=== PATIENT | male | born 1950 | race African-American/Black ===

== ENCOUNTER 2016-10-05 11:14 | Emergency (ER) | payer MEDICARE, MEDICAID ==
[~2016-10-05] VITALS: Ht 177.8 cm; Wt 60.0 kg
[2016-10-05 12:14] VITALS: BP 170/86
[2016-10-05] MEDS ORDERED: LIDOCAINE HCL 1%/EPI 1:200,000 30 ML VIAL MC ONE (13:15)
== END 2016-10-05 17:00 | disposition home or self-care (01) ==
LOC: ER 14:35
DX: L02.413 Cutaneous abscess of right upper limb (principal); F11.288 Opioid dependence with other opioid-induced disorder; I10 Essential (primary) hypertension; F17.210 Nicotine dependence, cigarettes, uncomplicated
CPT/HCPCS: 10060; 99283; J7030

== ENCOUNTER 2016-10-07 13:14 | Emergency (ER) | payer MEDICARE, MEDICAID ==
[~2016-10-07] VITALS: Ht 167.6 cm; Wt 55.0 kg
[2016-10-07 14:17] VITALS: BP 154/91
== END 2016-10-07 15:50 | disposition home or self-care (01) ==
LOC: ER 13:14
DX: Z48.00 Encounter for change or removal of nonsurgical wound dressing (principal); L02.413 Cutaneous abscess of right upper limb; F11.10 Opioid abuse, uncomplicated; I10 Essential (primary) hypertension
CPT/HCPCS: 99283

== ENCOUNTER 2016-11-17 21:28 | Emergency (ER) | payer MEDICARE, MEDICAID ==
[~2016-11-17] VITALS: Ht 167.6 cm; Wt 63.5 kg
[2016-11-17 21:29] VITALS: BP 174/96
== END 2016-11-18 03:41 | disposition left against medical advice (07) ==
LOC: ER 22:25
DX: Z53.21 Procedure and treatment not carried out due to patient leaving prior to being seen by health care provider (principal)

== ENCOUNTER 2018-03-16 12:26 | Emergency (ER) | payer MEDICARE, MEDICAID ==
[~2018-03-16] VITALS: Ht 170.2 cm; Wt 52.0 kg
[2018-03-16] MEDS ORDERED: LIDOCAINE 1%/EPI 1:100,000 10 ML VIAL IJ ONE (13:30)
[2018-03-16] MEDS ORDERED: BACITRACIN ZINC OINT UDPKT TOP ONE (13:30)
[2018-03-16 14:34] VITALS: BP 141/90
== END 2018-03-16 14:35 | disposition home or self-care (01) ==
LOC: ER 14:04
DX: L02.414 Cutaneous abscess of left upper limb (principal); I10 Essential (primary) hypertension; F17.200 Nicotine dependence, unspecified, uncomplicated; Z86.73 Personal history of transient ischemic attack (TIA), and cerebral infarction without residual deficits
CPT/HCPCS: 10060; 99283; J3490

== ENCOUNTER 2018-07-04 00:07 | Emergency (ER) | payer MEDICARE, MEDICAID ==
[~2018-07-04] VITALS: Ht 188 cm; Wt 82.0 kg
[2018-07-04] MEDS ORDERED: DEXTROSE 50% WATER 50ML SYRINGE IV ONE (01:00)
[2018-07-04 01:39] LABS: BASOPHILS % 1.1 % (0.0-2.0); HEMATOCRIT. 41.7 % (42.0-52.0); HEMOGLOBIN. 13.8 g/dL (14.0-18.0); LYMPHOCYTES % 17.2 % (20.0-50.0); MEAN CORPUSCULAR HEMOGLOBIN 30.2 pg (28.0-32.0); MEAN CORPUSCULAR VOLUME 90.8 fL (80.0-94.0); MEAN PLATELET VOLUME 7.3 fl (7.4-10.4); MONOCYTES % 5.1 % (2.0-8.0); NEUTROPHILS % 74.6 % (40.0-76.0); PLATELET 323 x1000/uL (130-400); RED BLOOD CELL COUNT 4.59 mill/uL (4.7-6.1); RED CELL DISTRIBUTION WIDTH 15.6 % (11.6-14.6)
[2018-07-04 01:45] LABS: CHLORIDE 102 mEq/L (98-107)
[2018-07-04 04:02] VITALS: BP 137/76
== END 2018-07-04 04:05 | disposition home or self-care (01) ==
LOC: ER 00:07
DX: E11.649 Type 2 diabetes mellitus with hypoglycemia without coma (principal); I10 Essential (primary) hypertension; Z86.73 Personal history of transient ischemic attack (TIA), and cerebral infarction without residual deficits
CPT/HCPCS: 36415; 82962; 93005; 99284

== ENCOUNTER 2019-03-24 08:22 | Emergency (ER) | payer MEDICARE, MEDICAID ==
[~2019-03-24] VITALS: Ht 172.7 cm; Wt 75.0 kg
[2019-03-24] MEDS ORDERED: SODIUM CHLORIDE 0.9% 1,000 ML IV ONE (08:50)
[2019-03-24 09:27] LABS: BASOPHILS % 0.7 % (0.0-2.0); EOSINOPHILS % 1.7 % (0.0-5.0); HEMATOCRIT. 42.1 % (42.0-52.0); HEMOGLOBIN. 13.9 g/dL (14.0-18.0); LYMPHOCYTES % 16.8 % (20.0-50.0); MEAN CORPUSCULAR HEMOGLOBIN 29.8 pg (28.0-32.0); MEAN CORPUSCULAR VOLUME 90.1 fL (80.0-94.0); MEAN PLATELET VOLUME 7.4 fl (7.4-10.4); MONOCYTES % 7.5 % (2.0-8.0); NEUTROPHILS % 73.3 % (40.0-76.0); PLATELET 325 x1000/uL (130-400); RED BLOOD CELL COUNT 4.67 mill/uL (4.7-6.1); RED CELL DISTRIBUTION WIDTH 17.1 % (11.6-14.6)
[2019-03-24 09:33] LABS: CHLORIDE 101 mEq/L (98-107)
[2019-03-24 09:37] LABS: ETHANOL BLOOD 109 mg/dL
[2019-03-24 10:21] LABS: CLARITY URINE CLEAR (CLEAR); COLOR URINE YELLOW (YELLOW); KETONES URINE NEGATIVE (NEGATIVE); LEUKOCYTE ESTERASE URINE NEGATIVE (NEGATIVE); NITRITE URINE NEGATIVE (NEGATIVE); OCCULT BLOOD URINE NEGATIVE (NEGATIVE); PROTEIN URINE 2+ (NEGATIVE); SPECIFIC GRAVITY URINE 1.019 (1.005-1.030); UROBILINOGEN URINE 0.2 E.U./dL (0.2-1.0)
[2019-03-24 10:46] LABS: *AMPHETAMINES SCREEN URINE NEGATIVE (NEGATIVE); *BARBITURATES SCREEN URINE NEGATIVE (NEGATIVE); *BENZODIAZEPINES SCREEN URINE NEGATIVE (NEGATIVE); *COCAINE SCREEN URINE NEGATIVE (NEGATIVE); METHADONE URINE SCREEN NEGATIVE (NEGATIVE)
[2019-03-24 10:47] LABS: CANNABINOID URINE SCREEN NEGATIVE (NEGATIVE); OPIATES URINE SCREEN PRESUMTIVE POSITIVE (NEGATIVE); PHENCYCLIDINE URINE SCREEN NEGATIVE (NEGATIVE)
[2019-03-24 12:31] VITALS: BP 148/75
== END 2019-03-24 12:36 | disposition home or self-care (01) ==
LOC: ER 08:22
DX: T40.1X1A Poisoning by heroin, accidental (unintentional), initial encounter (principal); Y92.9 Unspecified place or not applicable; E86.0 Dehydration; F10.10 Alcohol abuse, uncomplicated; Y90.5 Blood alcohol level of 100-119 mg/100 ml; I10 Essential (primary) hypertension; Z86.73 Personal history of transient ischemic attack (TIA), and cerebral infarction without residual deficits
CPT/HCPCS: 36415; 80053; 80305; 80320; 81003; 85025; 96360; 99283; J7030; G0480

== ENCOUNTER 2019-09-17 15:56 | Emergency (ER) | payer MEDICARE, MEDICAID ==
[~2019-09-17] VITALS: Ht 177.8 cm; Wt 79.0 kg
[2019-09-17] MEDS ORDERED: AMLODIPINE 5MG TABLET PO ONE (16:30)
[2019-09-17 17:13] LABS: BASOPHILS % 0.7 % (0.0-2.0); EOSINOPHILS % 5.5 % (0.0-5.0); HEMATOCRIT. 39.2 % (42.0-52.0); HEMOGLOBIN. 13.4 g/dL (14.0-18.0); LYMPHOCYTES % 22.8 % (20.0-50.0); MEAN CORPUSCULAR HEMOGLOBIN 31.1 pg (28.0-32.0); MEAN CORPUSCULAR VOLUME 90.8 fL (80.0-94.0); MEAN PLATELET VOLUME 7.7 fl (7.4-10.4); MONOCYTES % 10.2 % (2.0-8.0); NEUTROPHILS % 60.8 % (40.0-76.0); PLATELET 247 x1000/uL (130-400); RED BLOOD CELL COUNT 4.31 mill/uL (4.7-6.1)
[2019-09-17 17:14] LABS: CHLORIDE 102 mEq/L (98-107)
[2019-09-17 17:17] LABS: INR 0.9; PROTHROMBIN TIME 10.1 sec (9.6-11.0)
[2019-09-17 18:48] VITALS: BP 142/90
== END 2019-09-17 18:49 | disposition home or self-care (01) ==
LOC: ER 15:56
DX: R04.0 Epistaxis (principal); I10 Essential (primary) hypertension; F11.10 Opioid abuse, uncomplicated; Z86.73 Personal history of transient ischemic attack (TIA), and cerebral infarction without residual deficits
CPT/HCPCS: 36415; 80053; 85025; 99283

== ENCOUNTER 2020-04-03 03:31 | Emergency (ER) | payer MEDICARE, MEDICAID ==
[~2020-04-03] VITALS: Ht 170.2 cm; Wt 73.0 kg
[2020-04-03] MEDS ORDERED: HYDROCODONE/ACETAMINOPHEN 5/325MG TABLET PO STA (05:15)
[2020-04-03] MEDS ORDERED: ACETAMINOPHEN 325MG TABLET PO STA (05:15)
[2020-04-03] MEDS ORDERED: VANCOMYCIN 1 G PREMIX 200 ML IV ONE (05:15)
[2020-04-03] MEDS ORDERED: SODIUM CHLORIDE 0.9% 1,000 ML IV ONE (05:15)
[2020-04-03] MEDS ORDERED: PIPERACILLIN/TAZ 3.375G PREMIX 50 ML IV ONE (05:15)
[2020-04-03 06:29] LABS: BASOPHILS % 0.6 % (0.0-2.0); EOSINOPHILS % 0.9 % (0.0-5.0); LYMPHOCYTES % 9.8 % (20.0-50.0); MEAN CORPUSCULAR HEMOGLOBIN 29.7 pg (28.0-32.0); MEAN PLATELET VOLUME 6.9 fl (7.4-10.4); MONOCYTES % 12.1 % (2.0-8.0); NEUTROPHILS % 76.6 % (40.0-76.0); PLATELET 373 x1000/uL (130-400); RED BLOOD CELL COUNT 4.02 mill/uL (4.7-6.1); RED CELL DISTRIBUTION WIDTH 15.5 % (11.6-14.6)
[2020-04-03 06:39] LABS: PROTHROMBIN TIME 10.7 sec (9.6-11.0)
[2020-04-03 06:40] LABS: CHLORIDE 104 mEq/L (98-107)
[2020-04-03] MEDS ORDERED: IOHEXOL-300 100 ML BOTTLE ONE (07:11)
[2020-04-03 08:00] VITALS: BP 175/117
[2020-04-03] MEDS ORDERED: BACITRACIN ZINC OINT UDPKT TOP ONE (08:15)
[2020-04-03] MEDS ORDERED: LIDOCAINE 1%/EPI 1:100,000 10 ML VIAL IJ ONE (08:15)
[2020-04-03] MEDS ORDERED: LIDOCAINE HCL/EPINEPHRINE 1%-EPI 1:100,000 20 ML VIAL INFIL NR (08:30)
== END 2020-04-03 10:31 | disposition left against medical advice (07) ==
LOC: ER 03:31
DX: J86.9 Pyothorax without fistula (principal); I10 Essential (primary) hypertension; Z86.73 Personal history of transient ischemic attack (TIA), and cerebral infarction without residual deficits
CPT/HCPCS: 10060; 36415; 71045; 71260; 80053; 83605; 84145; 84484; 85025; 85610; 87040; 87070; 87205; 93005; 96365; 96366; 99285; J2543; J3370; J7030; Q9967; J3490

== ENCOUNTER 2020-05-18 13:51 | Emergency (ER) | payer MEDICARE, MEDICAID ==
[~2020-05-18] VITALS: Ht 172.7 cm; Wt 80.0 kg
[2020-05-18 13:53] VITALS: BP 144/81
[2020-05-18 15:45] LABS: CHLORIDE 104 mEq/L (98-107)
[2020-05-18 15:46] LABS: BASOPHILS % 1.1 % (0.0-2.0); EOSINOPHILS % 0.9 % (0.0-5.0); HEMATOCRIT. 37.6 % (42.0-52.0); HEMOGLOBIN. 12.4 g/dL (14.0-18.0); LYMPHOCYTES % 19.9 % (20.0-50.0); MEAN CORPUSCULAR HEMOGLOBIN 28.2 pg (28.0-32.0); MEAN CORPUSCULAR VOLUME 85.6 fL (80.0-94.0); MEAN PLATELET VOLUME 6.9 fl (7.4-10.4); MONOCYTES % 4.7 % (2.0-8.0); NEUTROPHILS % 73.4 % (40.0-76.0); PLATELET 432 x1000/uL (130-400); RED BLOOD CELL COUNT 4.39 mill/uL (4.7-6.1); RED CELL DISTRIBUTION WIDTH 16.5 % (11.6-14.6)
[2020-05-18 16:08] LABS: ETHANOL BLOOD 309 mg/dL
[2020-05-18 16:13] LABS: HEPATITIS B SURFACE ANTIGEN NEGATIVE
[2020-05-18 16:43] LABS: HEPATITIS A AB IGM NEGATIVE (NEGATIVE)
[2020-05-20 10:08] LABS: HIV SCREEN 4G Non Reactive (Non Reactive)
== END 2020-05-18 17:09 | disposition left against medical advice (07) ==
LOC: ER 14:01
DX: T40.1X1A Poisoning by heroin, accidental (unintentional), initial encounter (principal); F10.129 Alcohol abuse with intoxication, unspecified; I10 Essential (primary) hypertension; Y92.89 Other specified places as the place of occurrence of the external cause; Y90.8 Blood alcohol level of 240 mg/100 ml or more
CPT/HCPCS: 36415; 80048; 80076; 80320; 85025; 86705; 86709; 86803; 87340; 87389; 99283; G0480

== ENCOUNTER 2020-10-06 19:34 | Emergency (ER) | payer MEDICARE, MEDICAID ==
[~2020-10-06] VITALS: Ht 167.6 cm; Wt 68.0 kg
[2020-10-06 21:51] LABS: HEMATOCRIT. 35.1 % (42.0-52.0); HEMOGLOBIN. 11.3 g/dL (14.0-18.0); MEAN CORPUSCULAR HEMOGLOBIN 28.4 pg (28.0-32.0); MEAN CORPUSCULAR VOLUME 88.5 fL (80.0-94.0); RED BLOOD CELL COUNT 3.97 mill/uL (4.7-6.1); RED CELL DISTRIBUTION WIDTH 16.7 % (11.6-14.6)
[2020-10-06 21:56] LABS: CHLORIDE 108 mEq/L (98-107)
[2020-10-06 21:59] LABS: ETHANOL BLOOD < 10 mg/dL
[2020-10-06 22:29] LABS: MEAN PLATELET VOLUME 7.5 fl (7.4-10.4); PLATELET 336 x1000/uL (130-400)
[2020-10-06 22:38] LABS: PLATELET ESTIMATE NORMAL
[2020-10-07 01:50] VITALS: BP 151/77
== END 2020-10-07 02:06 | disposition home or self-care (01) ==
LOC: ER 19:34
DX: R41.82 Altered mental status, unspecified (principal); F11.129 Opioid abuse with intoxication, unspecified; F10.129 Alcohol abuse with intoxication, unspecified; Y90.0 Blood alcohol level of less than 20 mg/100 ml
CPT/HCPCS: 36415; 80053; 80320; 85025; 93005; 99285; G0480

== ENCOUNTER 2021-03-25 15:07 | Emergency (ER) | payer MEDICARE, MEDICAID ==
[~2021-03-25] VITALS: Ht 167.6 cm; Wt 60.0 kg
[~2021-03-25 15:07] MED LIST: CEPH500C2 MT; SULF1TAB47 MT
[2021-03-25] MEDS ORDERED: TETANUS, DIPHTHERIA, PERTUSSIS VAC/PF 0.5ML (>10YR OLD) IM ONE (15:45)
[2021-03-25] MEDS ORDERED: LIDOCAINE HCL/EPINEPHRINE 1%-EPI 1:100,000 20 ML VIAL INFIL ONE (15:45)
[2021-03-25] MEDS ORDERED: CEPHALEXIN 250MG CAPSULE PO ONE (16:45)
[2021-03-25] MEDS ORDERED: CEPH500T MT (17:27)
[2021-03-25 18:02] VITALS: BP 133/68
== END 2021-03-25 18:05 | disposition home or self-care (01) ==
LOC: ER 15:07
DX: L02.413 Cutaneous abscess of right upper limb (principal); I10 Essential (primary) hypertension; F17.210 Nicotine dependence, cigarettes, uncomplicated; Z71.6 Tobacco abuse counseling
CPT/HCPCS: 90471; 90715; 99284; 99406; J3490

== ENCOUNTER 2023-01-16 12:30 | Emergency (ER) | payer MEDICARE, OTHER ==
[~2023-01-16] VITALS: Ht 167.6 cm; Wt 55.0 kg
[~2023-01-16 12:30] MED LIST changes: +CEPH500T MT
[2023-01-16 12:44] VITALS: TEMP 98.4; O2SAT 97
[2023-01-16] MEDS ORDERED: IBUPROFEN 600MG TABLET PO ONE (13:00)
[2023-01-16] MEDS ORDERED: NAPR500T7 MT (14:40)
[2023-01-16 15:15] VITALS: BP 136/82; PULSE 64; RESP 18
[2023-01-16] MEDS ORDERED: IBUPROFEN 600MG TABLET PO NR (15:15)
== END 2023-01-16 15:21 | disposition home or self-care (01) ==
LOC: ER 12:30
DX: S42.001A Fracture of unspecified part of right clavicle, initial encounter for closed fracture (principal); F03.90 Unspecified dementia, unspecified severity, without behavioral disturbance, psychotic disturbance, mood disturbance, and anxiety; I10 Essential (primary) hypertension; Z79.899 Other long term (current) drug therapy; W01.0XXA Fall on same level from slipping, tripping and stumbling without subsequent striking against object, initial encounter; Y93.89 Activity, other specified; Y92.89 Other specified places as the place of occurrence of the external cause; Y99.8 Other external cause status
CPT/HCPCS: 71045; 73030; 99284; A4565